=== PATIENT | female | born 1965 | race Two or more races ===

== ENCOUNTER → 2016-03-25 | Outpatient (CLI) | payer OTHER | LOC: FIMAGING 07:38 | PROVIDERS: ATTEND Physician Assistant | DX: N83.202 Unspecified ovarian cyst, left side (principal); D25.0 Submucous leiomyoma of uterus; R92.2 Inconclusive mammogram ==

== ENCOUNTER → 2016-11-24 | Outpatient (CLI) | payer OTHER | LOC: FIMAGING 15:07 | PROVIDERS: ATTEND Physician Assistant | DX: D25.0 Submucous leiomyoma of uterus (principal); N60.02 Solitary cyst of left breast; N83.292 Other ovarian cyst, left side ==

== ENCOUNTER 2017-03-17 18:37 | Emergency (ER) | payer OTHER ==
[2017-03-17 18:46] VITALS: RESP 18
--- NOTE | 2017-03-17 19:51 | EDPHY ---
H & P Time Seen by Provider: 03/17/17 19:26 HPI/ROS: CHIEF COMPLAINT: Cough, difficulty breathing. HISTORY OF PRESENT ILLNESS: This patient is a Czech-speaking 51 year old female who presents with a 2 week h/o cough. Onset of runny nose, sore throat and cough 2 weeks ago. She was evaluated at [facility] 03/12/17 and prescribed cough suppressant. She continues to have a productive cough with yellow sputum. Last night, she was unable to sleep well because she has a frequent cough with supine positioning. She feels as if she cannot take a deep breath because it causes her to cough. No exertional shortness of breath. She denies fever. Denies any known heart or lung problems. No prior history of pneumonia. No nausea, vomiting, diarrhea, or other associated symptoms. HPI obtained primarily from patient's daughter translating at bedside. REVIEW OF SYSTEMS: A 10 point review of systems was performed and is negative with the exception of the elements mentioned in the history of present illness. Past Medical/Surgical History: Denies. Social History: Nonsmoker. Czech-speaking. Family at bedside. Smoking Status: Never smoked Physical Exam: General Appearance: Alert, pleasant, nontoxic Eyes: Pupils equal and round, no conjunctival pallor or injection ENT, Mouth: Mucous membranes moist Neck: Normal inspection Respiratory: Normal respiratory rate, Lungs are clear to auscultation, no wheezing Cardiovascular: Regular rate and rhythm Gastrointestinal: Abdomen is soft and non-tender Neurological: A&O, nonfocal exam Skin: Warm and dry, no rash Extremities: Nontender, no pedal edema Psychiatric: Mood and affect normal Constitutional: Initial Vital Signs Temperature (C) 37 C 03/17/17 18:42 Heart Rate 98 03/17/17 18:42 Respiratory Rate 18 03/17/17 18:42 Blood Pressure 144/90 H 03/17/17 18:42 O2 Sat (%) 96 03/17/17 18:42 O2 Delivery Mode Room Air Allergies/Adverse Reactions: No Known Allergies Allergy (Unverified 03/17/17 18:42) Home Medications: Medication Instructions Recorded Azithromycin [Zithromax] 250 mg PO DAILY #6 tab 03/17/17 Benzonatate 03/17/17 Medical Decision Making - Diagnostics Imaging Results: Chest X-Ray 03/17/17 19:09 Impression: Normal. Imaging: I viewed and interpreted images myself ED Course/Re-evaluation: 51 y/o female presents with 2 week history of cough with difficulty breathing. Oxygen saturation is normal. Lungs clear to auscultation, without evidence of bronchospasm. Plan for chest x-ray to r/o pneumonia. Chest x-ray negative for pneumonia. Results d/w patient. Plan to d/c home in good condition with prescription for Zithromax. Follow up and return precautions discussed. She and her family are comfortable with this plan. Departure - Departure Disposition: Home, Routine, Self-Care Clinical Impression: Acute bronchitis Qualifiers: Bronchitis organism: unspecified organism Qualified Code(s): J20.9 - Acute bronchitis, unspecified Condition: Good Instructions: Acute Bronchitis (ED) Additional Instructions: 1. Take Zithromax as prescribed. 2. Try NyQuil for symptom relief as we discussed. Try sleeping propped up on pillows or reclined. 3. Stay well-hydrated. 4. Return to the emergency department for fever, chest pain, shortness of breath , severe headache or neck pain, abdominal pain, rash or other worsening of condition. 5. Follow up with your primary care provider for further evaluation. 1- [place] el Zithromax a na se le troy recetado. 2. Intente el NyQuil para ayudar con los sintomas a na lo mencionamos. Trate de dormir con varias almohadas o reclinada. 3. Mantengase quiana hidratada. 4. Regrese a la kaitlyn de emergencia si tiene fiebre, dolor de pecho, falta de respiracion, dolor tiesha de la debi o neymar, dolor abdominal, sarpudillo o si addison condicion empeora. 5. [place] latrice de seguimiento con addison doctor de cabecera. Referrals: [facility] [Other] - As per Instructions Prescriptions: Azithromycin [Zithromax] 250 mg PO DAILY #6 tab Print Language: Czech Report Scribed for: Danette Nevarez Report Scribed by: Sri Shaikh Date of Report: 03/17/17 Time of Report: 19:44 Physician Review and Approval Statement: 03/17/17 19:44 Portions of this note were transcribed by a medical office receptionist. I personally performed a history, physical exam, medical decision making, and confirmed accuracy of information the transcribed note.
[2017-03-17 20:33] VITALS: BP 138/88; PULSE 75; TEMP 98.2; O2SAT 95
== END 2017-03-17 20:33 | disposition home or self-care (01) ==
DX: J20.9 Acute bronchitis, unspecified (principal)

== ENCOUNTER 2017-04-14 18:23 | Emergency (ER) | payer OTHER ==
--- NOTE | 2017-04-14 19:19 | EDPHY ---
HPI/HX/ROS/PE/MDM Narrative: CHIEF COMPLAINT: Shortness of breath, right upper abdominal pain HISTORY OF PRESENT ILLNESS: The patient is a 51 y/o female complaining of shortness of breath and right ear pain. She was seen in this ED on 03/17/17, 1 month ago, for similar symptoms and diagnosed with bronchitis. She was prescribed Zithromax, which improved her symptoms. For the past week she has had right ear pain. 3 nights ago she began to complain of feeling the like she could not catch her breath, she has something in the back of her throat, and she became anxious. This was occurring when she tried to lay down. Yesterday and today the shortness of breath worsened as it occurred during the day. She feels like she is "drowning and running out of air" which is new. The she is very anxious during these events and reports she feels like she is having a panic attack. She is currently having sharp right-sided chest pain and abdominal pain, a cough associated with sputum, and a headache in her temples. She occasionally has a burning sensation in her esophagus at night. No fever, chills, chest pain, palpitations, vomiting, diarrhea, urinary complaints, lightheadedness. Daughter at bedside was used to translate. REVIEW OF SYSTEMS: Aside from elements discussed in the HPI, a comprehensive 10-point review of systems was reviewed and is negative. PAST MEDICAL HISTORY: Anxiety, cholecystectomy (15 years ago) SOCIAL HISTORY: Daughter at bedside, non-smoker, Sami-speaking VITAL SIGNS: Reviewed by me GENERAL: Well-developed, well-nourished, resting comfortably in no respiratory distress. HEENT: Atraumatic. Eyes: No icterus, no injection. Ears: cerumen in right ear. Mouth: moist mucous membranes. No erythema or lesions. Neck: supple with no adenopathy. LUNGS: Slightly diminished breath sounds, no wheezes, rhonchi or rales. No chest wall tenderness. CARDIAC: Regular rate and rhythm, no rubs, murmurs or gallops. ABDOMEN: Epigastric and right upper quadrant tenderness. Soft, nondistended, bowel sounds normal. BACK: No CVA tenderness. EXTREMITIES: No trauma. No edema. Range of motion is normal throughout. NEURO: Alert and oriented, grossly nonfocal. SKIN: Warm and dry, no rash. PSYCHIATRIC: Normal mentation, no agitation. Portions of this note were transcribed by a medical staff coordinator. I personally performed a history, physical exam, medical decision making, and confirmed accuracy of information the transcribed note. ED Course: The patient is a 51 y/o female presenting with right ear pain , sinus pressure, and feeling of choking shortness of breath when she lays down at night. Her shortness of breath causes a panic attack. She also reports a burning sensation in her esophagus. On exam she has epigastric and right upper quadrant tenderness. Chest x-ray, EKG, and labs ordered. DuoNeb administered. 1950: 12-LEAD EKG: Please see the full report in [facility]. My interpretation: Normal sinus rhythm with a rate of 67 2004: Reassessed patient, she is feeling jittery, anxious, and stiff after receiving a DuoNeb. 1mg IV Ativan administered. 2040: I reviewed patient's chest x-ray; there are no acute findings; radiologist agrees. Patient has a normal chest x-ray, normal EKG, negative troponin, negative D- dimer. She became anxious after having a DuoNeb. The she reports significant sinus congestion and discomfort with shortness of breath when she tries to lay down flat. She has no peripheral edema on examination. She has no edema her chest x-ray. I believe the patient is most likely suffering from significant sinusitis with some postnasal drip and or esophageal spasm from reflux resulting in chest pain and shortness of breath. This then exacerbates her anxiety and patient then develops a panic attack. 2043: Reassessed patient and discussed laboratory and imaging findings. I have prescribed her Augmentin for sinusitis. Patient was placed on Augmentin for sinusitis. She was encouraged her to use Flonase nasal spray to help with her ear pain and facial congestion. She was encouraged to begin taking Prilosec for esophageal reflux. I have also prescribed her Ativan for her anxiety. Return precautions provided; patient is comfortable with this plan. MDM: Differential diagnosis for the patient's shortness of breath was considered including but not limited to pulmonary infectious processes, anxiety, pulmonary emboli, pulmonary edema, upper respiratory infection, esophageal spasm, congestive heart failure, and cardiac causes. - Data Points Imaging Results: Imaging Impressions Chest X-Ray 04/14/17 19:34 Impression: No focal pneumonia. Imaging: I viewed and interpreted images myself Laboratory Results: Laboratory Results 04/14/17 19:35 04/14/17 19:35 04/14/1718 04/14/17 19:35 19:35 19:35 WBC 7.05 10^3/uL 10^3/uL (3.80-9.50) RBC 4.66 10^6/uL 10^6/uL (4.18-5.33) Hgb 14.3 g/dL g/dL (12.6-16.3) Hct 42.0 % % (38.0-47.0) MCV 90.1 fL fL (81.5-99.8) MCH 30.7 pg pg (27.9-34.1) MCHC 34.0 g/dL g/dL (32.4-36.7) RDW 13.1 % % (11.5-15.2) Plt Count 263 10^3/uL 10^3/uL (150-400) MPV 10.7 fL fL (8.7-11.7) Neut % (Auto) 61.1 % % (39.3-74.2) Lymph % (Auto) 29.4 % % (15.0-45.0) [place] % (Auto) 7.0 % % (4.5-13.0) Eos % (Auto) 1.4 % % (0.6-7.6) Baso % (Auto) 0.7 % % (0.3-1.7) Nucleat RBC Rel Count 0.0 % % (0.0-0.2) Absolute Neuts (auto) 4.31 10^3/uL 10^3/uL (1.70-6.50) Absolute Lymphs (auto) 2.07 10^3/uL 10^3/uL (1.00-3.00) Absolute Monos (auto) 0.49 10^3/uL 10^3/uL (0.30-0.80) Absolute Eos (auto) 0.10 10^3/uL 10^3/uL (0.03-0.40) Absolute Basos (auto) 0.05 10^3/uL 10^3/uL (0.02-0.10) Absolute Nucleated RBC 0.00 10^3/uL 10^3/uL (0-0.01) Immature Gran % 0.4 % % (0.0-1.1) Immature Gran # 0.03 10^3/uL 10^3/uL (0.00-0.10) D-Dimer < 0.27 ug/mLFEU ug/mLFEU (0.00-0.50) Sodium 142 mEq/L mEq/L (135-145) Potassium 4.0 mEq/L mEq/L (3.5-5.2) Chloride 104 mEq/L mEq/L (97-110) Carbon Dioxide 23 mEq/l mEq/l (22-31) Anion Gap 15 mEq/L mEq/L (8-16) BUN 14 mg/dL mg/dL (7-23) Creatinine 0.7 mg/dL mg/dL (0.6-1.0) Estimated GFR > 60 Glucose 121 mg/dL H mg/dL (70-100) Calcium 10.1 mg/dL mg/dL (8.5-10.4) Total Bilirubin 0.3 mg/dL mg/dL (0.1-1.4) Conjugated Bilirubin 0.3 mg/dL mg/dL (0.0-0.5) Unconjugated Bilirubin 0.0 mg/dL mg/dL (0.0-1.1) AST 32 IU/L IU/L (14-46) ALT 51 IU/L IU/L (9-52) Alkaline Phosphatase 80 IU/L IU/L (38-126) Troponin I < 0.012 ng/mL ng/mL (0.000-0.034) NT-Pro-B Natriuret Pep 11 pg/mL pg/mL (0-125) Total Protein 7.9 g/dL g/dL (6.3-8.2) Albumin 4.8 g/dL g/dL (3.5-5.0) Medications Given: Discontinued Medications Albuterol/Ipratropium (Duoneb) 3 ml IH EDNOW ONE Stop: 04/14/17 19:35 Last Admin: 04/14/17 19:46 Dose: 3 ml Lorazepam (Ativan Injection) 1 mg IVP EDNOW ONE Stop: 04/14/17 20:06 Last Admin: 04/14/17 20:06 Dose: 1 mg General Time Seen by Provider: 04/14/17 19:16 Initial Vital Signs: Initial Vital Signs Temperature (C) 36.8 C 04/14/17 18:30 Heart Rate 74 04/14/17 18:30 Respiratory Rate 18 04/14/17 18:30 Blood Pressure 104/76 04/14/17 18:30 O2 Sat (%) 98 04/14/17 18:30 O2 Delivery Mode Room Air Allergies/Adverse Reactions: No Known Allergies Allergy (Verified 04/14/17 18:41) Home Medications: Medication Instructions Recorded Amoxicillin/Clavulanate Pot 875 mg PO BID #14 tab 04/14/17 [Augmentin 875 MG TAB (*)] LORazepam [Ativan] 1 mg PO BID PRN #10 tablet 04/14/17 Departure - Departure Disposition: Home, Routine, Self-Care Clinical Impression: Anxiety, Ear pain, right Sinusitis Qualifiers: Sinusitis location: unspecified location Chronicity: acute Recurrence: not specified as recurrent Qualified Code(s): J01.90 - Acute sinusitis, unspecified Esophageal reflux Qualifiers: Esophagitis presence: esophagitis presence not specified Qualified Code(s): K21.9 - Gastro-esophageal reflux disease without esophagitis Condition: Good Instructions: Sinusitis (ED), Earache (ED), Anxiety (ED), Esophageal Spasm (ED) Additional Instructions: You been given a prescription of Augmentin to treat your sinusitis. Please take this as directed. Please obtained Flonase nasal spray. This is available [id number]. Use as directed. Please take Tylenol or ibuprofen for headache pain and facial pain. Take Debrox over the counter to clear the wax in your ear. Take Ativan as prescribed for anxiety. I also recommend you obtain a prescription for Prilosec to help treat the burning sensation in your chest. Mainstay of therapy will be to drink plenty of fluids, control your symptoms with [id number] medications, and get plenty of rest. Return to the emergency department or seek care urgently if you're symptoms are worsening despite the above treatment, if you develop shortness of breath, if you're unable to drink fluids secondary to throat pain or other issues, if you developed, vomiting, diarrhea, or other concerns. Referrals: [facility],. [Clinic] - As per Instructions Prescriptions: Amoxicillin/Clavulanate Pot [Augmentin 875 MG TAB (*)] 875 mg PO BID #14 tab LORazepam [Ativan] 1 mg PO BID PRN #10 tablet PRN Reason: Anxiety Report Scribed for: Penelope Velazquez Report Scribed by: Taisha Atkinson Date of Report: 04/14/17 Time of Report: 19:18
[2017-04-14 19:29] VITALS: TEMP 98.1
[2017-04-14] MEDS ORDERED: IPRATROPIUM/ALBUTEROL 3 ML DEYVIAL IH ONE (19:34)
[2017-04-14 19:46] LABS: PLATELET COUNT 263 10^3/uL (150-400)
--- NOTE | 2017-04-14 19:52 | CPEKG ---
Heart Rate: 67 RR Interval: 896 P-R Interval: 164 QRSD Interval: 74 QT Interval: 396 QTC Interval: 418 P [place]: 14 QRS [place]: 24 T Wave [place]: 8 EKG Severity - NORMAL ECG - EKG Impression: SINUS RHYTHM Electronically Signed By: Penelope Velazquez 15-Apr-2017 10:15:17
[2017-04-14] MEDS ORDERED: LORazepam 2 MG/ML INJ ONE (20:04)
[2017-04-14] MEDS ORDERED: LORazepam 2 MG/ML INJ IVP ONE (20:05)
[2017-04-14] MEDS ORDERED: HYDROGEN PEROXIDE 236 ML BOTTLE TP ONE (20:59)
[2017-04-14 21:08] VITALS: RESP 20
[2017-04-14 22:31] VITALS: BP 106/67; PULSE 85; O2SAT 100
== END 2017-04-14 22:31 | disposition home or self-care (01) ==
DX: F41.9 Anxiety disorder, unspecified (principal); H92.01 Otalgia, right ear; J01.90 Acute sinusitis, unspecified; K21.9 Gastro-esophageal reflux disease without esophagitis; Z90.49 Acquired absence of other specified parts of digestive tract
CPT/HCPCS: 96374; J2060

== ENCOUNTER → 2018-07-13 | Outpatient (CLI) | payer OTHER | LOC: FIMAGING 14:14 | PROVIDERS: ATTEND Family Medicine | DX: R92.8 Other abnormal and inconclusive findings on diagnostic imaging of breast (principal) ==